=== PATIENT | male | born 1995 | race Caucasian/White ===

== ENCOUNTER 2017-07-14 20:52 | Emergency (ER) | payer SELFPAY ==
[~2017-07-14] VITALS: Ht 180.3 cm; Wt 104.3 kg
[2017-07-14] MEDS ORDERED: ZOFRAN ODT4 MG SL (21:18)
== END 2017-07-14 22:43 | disposition home or self-care (01) ==
LOC: ED 20:52
DX: R04.0 Epistaxis (principal); R11.0 Nausea; J11.1 Influenza due to unidentified influenza virus with other respiratory manifestations